=== PATIENT | male | born 1990 | race Caucasian/White ===

== ENCOUNTER 2018-04-25 15:13 | Emergency (ER) | payer OTHER ==
[~2018-04-25] VITALS: Ht 175.3 cm; Wt 88.5 kg
[2018-04-25] MEDS ORDERED: MEDROLDOSEPACK PO (15:45)
[2018-04-25] MEDS ORDERED: CYCLOBENZAPRINE10 MG PO (15:46)
[2018-04-25] MEDS ORDERED: NORCO 5-325 TA1 EACH PO (15:46)
[2018-04-25 15:55] VITALS: BP 129/80
== END 2018-04-25 15:57 | disposition home or self-care (01) ==
LOC: M.ERS 15:13
DX: M54.41 Lumbago with sciatica, right side (principal)

== ENCOUNTER 2018-11-19 18:22 | Emergency (ER) | payer OTHER ==
[~2018-11-19] VITALS: Ht 175.3 cm; Wt 87.1 kg
[~2018-11-19 18:22] MED LIST: CYCLOBENZAPRINE10 MG PO; MEDROLDOSEPACK PO; NORCO 5-325 TA1 EACH PO
[2018-11-19 18:46] LABS: ABSOLUTE BASOPHILS 0.1 thou/uL (0.0-0.2); ABSOLUTE EOSINOPHILS 0.2 thou/uL (0.0-0.7); ABSOLUTE LYMPHOCYTES 3.1 thou/uL (0.8-5.3); ABSOLUTE MONOCYTES 0.7 thou/uL (0.0-1.2); BASOPHILS 0.9 %; EOSINOPHILS 1.8 %; HEMATOCRIT 43.9 % (42.0-52.0); HEMOGLOBIN 14.9 gm/dL (14.0-18.0); LYMPHOCYTES 34.4 %; MCH 31.6 pg (26.0-34.0); MCV 92.8 fL (80.0-100.0); MPV 10.1 fl. (7.2-11.1); NUCLEATED RBCS 0 /100WBC; PLATELET COUNT* 205 thou/uL (150-400); POLYS 54.9 %; RBC 4.73 mil/uL (4.50-6.00); RDW-CV 13.1 % (10.5-14.5); WBC 9.2 thou/uL (4.0-11.0)
[2018-11-19 19:23] LABS: ALBUMIN 4.3 g/dL (3.4-5.0); ALKALINE PHOSPHATASE 58 U/L (46-116); ANION GAP 8 mmol/L (7-16); BUN 23 mg/dL (7-18); CALCIUM 9.5 mg/dL (8.5-10.1); CHLORIDE 103 mmol/L (98-107); CO2 29 mmol/L (21-32); CREATININE 1.2 mg/dL (0.6-1.3); GLUCOSE 121 mg/dL (70-99); POTASSIUM 3.6 mmol/L (3.5-5.1); SGOT 15 U/L (15-37); SGPT 27 U/L (30-65); SODIUM 140 mmol/L (136-145); TOTAL BILIRUBIN 0.3 mg/dL (<0.1-1.0); TOTAL PROTEIN 7.9 g/dL (6.4-8.2); TROPONIN-I LEVEL <0.06 ng/mL (<0.06)
[2018-11-19 19:50] LABS: URINE BILIRUBIN NEGATIVE (Negative); URINE BLOOD NEGATIVE (Negative); URINE CLARITY CLEAR; URINE COLOR YELLOW; URINE GLUCOSE-RANDOM NEGATIVE (Negative); URINE KETONES NEGATIVE (Negative); URINE LEUKOCYTES-REFLEX NEGATIVE (Negative); URINE NITRITE-REFLEX NEGATIVE (Negative); URINE PROTEIN NEGATIVE (Negative); URINE UROBILINOGEN 0.2 E.U./dl (0.2-1.0)
[2018-11-19 20:00] LABS: AMP/METHAMP Negative (Negative); BARBITURATES Negative (Negative); BENZODIAZEPINES Negative (Negative); COCAINE Negative (Negative); METHADONE Negative (Negative); OPIATES Negative (Negative); PCP Negative (Negative); THC POSITIVE (Negative)
[2018-11-19 20:15] VITALS: BP 130/60
--- NOTE | 2018-11-20 10:10 | EKG ---
[place] [address] ELECTROCARDIOGRAM REPORT Name: DAO KHAN Room: [facility]#: [id number] Admission: 11/19/18 Attend Phys: Discharge: 11/19/18 Date of : 88 Report #: [id number] THIS REPORT FOR: //name// [facility] ED Test Date: 2018-11-19 Test Time: 18:27:57 Pat Name: DAO MONROEUT Department: Room: Gender: M [employer] Worker: MERRITT : 1990 Requested By: Jacquie Madera Order Number: [id number] MD: Luisito Jose Measurements Intervals [place] Rate: 75 P: 28 NV: 129 QRS: 7 QRSD: 93 T: 32 QT: 361 QTc: 404 Interpretive Statements Sinus rhythm No previous ECG available for comparison Electronically Signed On 11-20-2018 10:10:06 COLLECTIONS ANALYST by Luisito Jose [email or web address] <ELECTRONICALLY SIGNED> By: Luisito Jose MD, [facility] 11/20/18 1010 1827 1827 Luisito Jose MD, FACC /EPI
== END 2018-11-19 20:15 | disposition home or self-care (01) ==
LOC: M.ERS 18:22
PROVIDERS: Nurse Practitioner Family
DX: R07.1 Chest pain on breathing (principal); M79.602 Pain in left arm